=== PATIENT | female | born 1995 | race Caucasian/White ===

== ENCOUNTER 2019-01-29 03:03 | Emergency (ER) | payer BC ==
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
== END 2019-01-29 05:09 | disposition home or self-care (01) ==
LOC: ERS 03:03
DX: O99.89 Other specified diseases and conditions complicating pregnancy, childbirth and the puerperium (principal); R10.30 Lower abdominal pain, unspecified
CPT/HCPCS: 36415; 76815; 84702; 99406